=== PATIENT | female | born 1990 | race Hispanic/Latino ===

== ENCOUNTER 2019-02-02 19:47 | Emergency (ER) | payer OTHER ==
[~2019-02-02] VITALS: Ht 152.4 cm; Wt 65.5 kg
[2019-02-02] MEDS ORDERED: ONDANSETRON HCL INJ 2MG/ML 2ML 2 MG/ML VIAL IV STA (21:01)
[2019-02-02] MEDS ORDERED: SODIUM CHLORIDE 0.9% 1000ML 1,000 ML IV SCH (21:15)
--- NOTE | 2019-02-02 22:05 | NUR ---
called [facility] for transport to main ER for MRI.
--- NOTE | 2019-02-02 22:28 | NUR ---
cancelled [facility] and MRI for now per Dr. Felix. Ultrasound ordered and called in. Pelvic set up for pt.
--- NOTE | 2019-02-02 23:13 | NUR ---
ultrasound here for the procedure/exam
--- NOTE | 2019-02-03 00:05 | NUR ---
Called [facility] for transport to main ER for MRI and called radiology to call in MRI
--- NOTE | 2019-02-03 00:07 | Diagnostic Imaging Report ---
Pelvic ultrasound transvaginal uterus CPT code: 08011 History: Right lower quadrant pain Comparison: None. LMP: 01/06/2019 Findings: Images were obtained with the endovaginal probe. The uterus is anteverted. It measures 3.3 x 4.6 x 6.8 cm. The endometrium is prolific. There is no evidence of gestational sac, yolk sac, or embryo. There is small amount of pelvic free fluid. The right ovary measures 2.9 x 3.4 x 3.8 cm. A unilocular cyst measures 14 x 19 x 20 mm. The left ovary measures 2.0 x 1.7 x 2.9 cm. The multiple follicles are present. No mass. There is blood flow in the ovaries on color Doppler interrogation. IMPRESSION:: No evidence of intrauterine or ectopic . Right ovarian cyst. Small amount of pelvic free fluid. Signed by: Dr. Opal Jeff MD on 02/03/2019 12:04 AM
--- NOTE | 2019-02-03 00:09 | Diagnostic Imaging Report ---
HISTORY: Right lower quadrant pain, evaluate for appendicitis TECHNIQUE: Dedicated images of the right lower quadrant were obtained. COMPARISON: Pelvic ultrasound obtained at the same time. FINDINGS: There are no dilated bowel loops. The appendix is not visualized. No evidence of free fluid. IMPRESSION: Nonvisualization of the appendix. No dilated bowel loops. Signed by: Dr. Opal Jeff MD on 02/03/2019 12:06 AM
--- NOTE | 2019-02-03 00:40 | NUR ---
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
[2019-02-03 02:42] LABS: CLARITY,URINE CLEAR (CLEAR); COLOR,URINE YELLOW (YELLOW)
[2019-02-03 02:43] LABS: BILIRUBIN,URINE NEGATIVE (NEGATIVE); KETONES,URINE NEGATIVE (NEGATIVE); LEUKOCYTE ESTERASE ,URINE NEGATIVE (NEGATIVE); NITRITE,URINE NEGATIVE (NEGATIVE); PROTEIN,URINE DIPSTICK NEGATIVE (NEGATIVE); URINE UROBILINOGEN 0.2 mg/dL (0.2 - 1)
[2019-02-03 02:48] LABS: BACTERIA,URINE MODERATE /HPF; EPITHELIAL CELLS,URINE MANY /LPF; RBC,URINE 0-5 /HPF (0-5); WBC,URINE (MAN) 0-5 /HPF (0-5)
--- NOTE | 2019-02-03 03:14 | Diagnostic Imaging Report ---
MRI pelvis Indication: Right lower quadrant pain, positive urine test Technique: Multiplanar, multi-sequential MRI of the pelvis was performed. No intravenous contrast was administered. Comparison: Pelvic ultrasound 02/02/2019 Findings: Multiple pulse sequences are motion degraded. Bowel: No dilated small bowel or large bowel. The appendix is poorly visualized but is suspected to be present on series 4, image 21 and series 3, image 20). It is not visible on the axial sequences. It measures 7 mm in diameter without evidence of intraluminal fluid. Uterus: Partially arcuate morphology. No evidence of . Ovaries: Cyst or follicle in the right ovary measures 19 mm. There are multiple tiny follicles in the left ovary. Cervix: Normal Peritoneum/retroperitoneum: Small amount of pelvic free fluid. No loculated fluid collection. Bladder: Normal Vasculature: Normal morphology. [id number] sequence demonstrates no evidence of thrombus. The gonadal veins were not imaged in their entirety, however. There are normal flow voids on the T2 weighted sequences. Bones: Normal marrow signal. No focal osseous lesions IMPRESSION: 1. Motion degraded exam. A tubular structure that may represent the appendix on coronal and sagittal T2 sequences is not dilated. No bowel obstruction. 2. Small amount of pelvic ascites. Dominant follicle in the right ovary. Signed by: Dr. Opal Jeff MD on 02/03/2019 3:11 AM
[2019-02-03 04:31] VITALS: BP 113/68
== END 2019-02-03 04:50 | disposition home or self-care (01) ==
LOC: FSED 19:47 → ER 02-03 04:50
DX: O34.81 Maternal care for other abnormalities of pelvic organs, first trimester (principal); N83.01 Follicular cyst of right ovary; R10.31 Right lower quadrant pain
CPT/HCPCS: 36415; 72195; 76705; 76817; 80053; 81001; 81003; 81025; 84702; 85025; 96374; 99284; J2405